=== PATIENT | male | born 2000 | race Caucasian/White ===

== ENCOUNTER 2022-01-11 18:17 | Observation (INO) | payer BC, SELFPAY ==
[2022-01-11] MEDS ORDERED: Ondansetron PF 4 MG/2 ML Vial IVP PRN (21:14)
[2022-01-11] MEDS ORDERED: Morphine 4 MG/ML VIAL SLOW IVP PRN ×2 (21:14→21:22)
[2022-01-11] MEDS ORDERED: Piperacillin/Tazobactam 3.375 GM in Sodium Chloride 0.9% 100 ML IVPB SCH (21:15)
[2022-01-11] MEDS: Sodium Chloride 0.9% 1,000 ML IV SCH (22:03)
[2022-01-12 01:09] VITALS: BP 100/61; TEMP 97.6
[2022-01-12] MEDS: Piperacillin/Tazobactam 3.375 GM in Sodium Chloride 0.9% 100 ML IVPB SCH ×2 (03:10→10:00)
[2022-01-12 03:37] VITALS: BMI 22.3
[2022-01-12] MEDS ORDERED: fentaNYL PF 100 MCG/2 ML SYRINGE ONE (07:04)
[2022-01-12] MEDS ORDERED: Dexmedetomidine 200 MCG/2 ML VIAL ONE (07:05)
[2022-01-12] MEDS ORDERED: PACU-Morphine 4MG/ML VIAL SLOW IVP PRN (07:25)
[2022-01-12] MEDS ORDERED: Ondansetron HCl/PF 4 MG/2 ML Vial IVP PRN (07:25)
[2022-01-12] MEDS ORDERED: Promethazine HCl 25 MG/ML VIAL IVPB PRN (07:25)
[2022-01-12] MEDS ORDERED: Promethazine HCl 25 MG/ML VIAL IM PRN (07:25)
[2022-01-12] MEDS ORDERED: Meperidine HCl/PF 25 MG/ML VIAL SLOW IVP PRN (07:25)
[2022-01-12] MEDS ORDERED: Bupivacaine HCl 0.5%/Epinephrine 1:200,000/PF 30 ml Vial ONE (07:37)
[2022-01-12] MEDS: Sodium Chloride 0.9% 1,000 ML IV SCH ×2 (08:08→13:53)
[2022-01-12] MEDS ORDERED: Ketorolac Tromethamine 30 MG/ML VIAL ONE (08:21)
[2022-01-12] MEDS ORDERED: Dexamethasone 20 MG/5 ML VIAL ONE (08:21)
[2022-01-12] MEDS ORDERED: Rocuronium Bromide 10 MG/ML (10ML VIAL) ONE (08:21)
[2022-01-12] MEDS ORDERED: Ondansetron PF 4 MG/2 ML Vial ONE (08:21)
[2022-01-12] MEDS ORDERED: Succinylcholine Chloride 200 MG/10 ML VIAL ONE (08:21)
[2022-01-12] MEDS ORDERED: PROPOFOL 200 MG/20 ML VIAL ONE (08:21)
[2022-01-12] MEDS ORDERED: traMADol HCl 50 MG TAB PO PRN (11:31)
[2022-01-12] MEDS ORDERED: Ketorolac Tromethamine 30 MG/ML VIAL IVP SCH (11:45)
[2022-01-12] MEDS ORDERED: traMADol HCl 50 MG TAB PO SCH (12:00)
[2022-01-12] MEDS ORDERED: Acetaminophen 325 MG TAB PO SCH (12:00)
== END 2022-01-12 14:59 | disposition home or self-care (01) ==
LOC: SURG A 18:17 → EDBD 18:17
PROVIDERS: ADMIT Surgery; ATTEND Surgery
PROC: 0DTJ4ZZ Resection of Appendix, Percutaneous Endoscopic Approach (ICD-10-PCS; principal; 2022-01-12)
DX: K35.80 Unspecified acute appendicitis (principal); F17.210 Nicotine dependence, cigarettes, uncomplicated
CPT/HCPCS: 88304; 96374; 96375; 96376; A4649; G0378; J0330; J1100; J1885; J2270; J2405; J2543; J2704; J3490; J7050